=== PATIENT | female | born 1995 | race Caucasian/White ===

== ENCOUNTER 2023-11-18 07:48 | Emergency (ER) | payer MEDICAID ==
[~2023-11-18] VITALS: Ht 170.2 cm; Wt 123.7 kg
[2023-11-18] MEDS ORDERED: dexamethasone sod phosphate 10mg/ml inj PO STA (10:49)
[2023-11-18] MEDS ORDERED: AZIT500T PO (10:51)
[2023-11-18 11:41] VITALS: BP 111/62; PULSE 91; RESP 18; TEMP 98.4; O2SAT 95
== END 2023-11-18 11:43 | disposition home or self-care (01) ==
LOC: ER 07:49
DX: J20.9 Acute bronchitis, unspecified (principal)
CPT/HCPCS: 71045; 99283; J1100

== ENCOUNTER 2023-12-11 14:33 | Emergency (ER) | payer MEDICAID ==
[~2023-12-11] VITALS: Ht 170.2 cm; Wt 127.3 kg
[2023-12-11 14:36] VITALS: BP 146/92; PULSE 77; RESP 16; TEMP 97.7; O2SAT 97
[2023-12-11] MEDS ORDERED: CEFD300C3 PO (15:12)
[2023-12-11] MEDS: dexamethasone sod phosphate 10mg/ml inj PO STA (15:22)
== END 2023-12-11 15:44 | disposition home or self-care (01) ==
LOC: ER 14:34
DX: J32.9 Chronic sinusitis, unspecified (principal); J20.9 Acute bronchitis, unspecified
CPT/HCPCS: 71045; 99283; J1100

== ENCOUNTER 2025-03-30 20:46 | Emergency (ER) | payer MEDICAID ==
[~2025-03-30] VITALS: Ht 170.2 cm; Wt 129.6 kg
[2025-03-30 21:27] VITALS: BP 146/90; PULSE 97; O2SAT 97
--- NOTE | 2025-03-30 21:34 | Physician Documentation ---
History of Present Illness ~ Stated Complaint: BACK PAIN Time Seen by MD: 21:31 Primary Medical Doctor: [facility] Source: patient Mode of Arrival: POV Exam Limitations: no limitations HPI 29-year-old female with history of back pain and spasms was laying on the ground when her back started to tighten up. Patient states it similar to the previous times that this has occurred. Patient desires to stay away from opiates or muscle relaxers. Patient does state that the Toradol did help last time she had this event. Patient denies any significant injuries or events causing this pain. Medication Reconciliation Allergies: Coded Allergies: No Known Allergies (Unverified , 11/18/23) Past Medical History Past Medical History: *MUSCULOSKELETAL*, Chronic Back Pain Review of Systems All Other Systems at this time: Reviewed and Negative Musculoskeletal: Reports: see HPI Physical Exam Physical Exam General Appearance: alert, WD/WN, no apparent distress Progress Results/Orders Results/Orders Orders - PRIYANKA LEACH NP Lidocaine 5% Patch (Lidoderm 5% Patch) (03/30/25 21:40) Ketorolac Trometh 30mg/Ml Vial (Toradol (03/30/25 21:40) Vital Signs 03/30/25 21:27 Temp 99.0 Pulse 97 Resp 22 B/P (MAP) 146/90 Pulse Ox 97 Medical Decision Making Findings History of chronic back pain similar symptoms no acute injuries. Differential Dx:Considerations: Include: Strain Departure Time of Disposition: 21:37 Disposition: 01 HOME / SELF CARE / HOMELESS Impression: Primary Impression: Low back pain Additional Impressions: Chronic back pain Muscle spasm of back Condition: Stable Discharge Instructions: Chronic Back Pain Additional Instructions: Use heat to help with muscle spasms to loosen muscles there are stretching activities as well. Follow up with primary care for potential referral to chiropractic or physical therapy to help with recurrent spasms of back pain. Referrals: NO PRIMARY CARE PROVIDER (PCP) Prescriptions Lidocaine (Lidoderm) 5 % Adh..patch 1 PATCH TOP DAILY for 30 Days, #30 PATCH 0 Refills may wear up to 12 hours Prov: PRIYANKA LEACH NP 03/30/25 Ibuprofen (Ibu) 800 Mg Tablet 1 TAB PO Q8H for 7 Days, #21 TAB 0 Refills Prov: PRIYANKA LEACH NP 03/30/25 Education Educated: Patient Educated regarding: diagnosis, treatment, need for follow up Signature Scribe Signature: The note accurately reflects work and decisions made by me.Priyanka ALCOCER 03/30/25 21:33 Attestation: The note accurately reflects work and decisions made by me.Priyanka ALCOCER 03/30/25 21:33 PRIYANKA LEACH NP Mar 30, 2025 21:34
[2025-03-30] MEDS ORDERED: LIDO-52 TOP (21:39)
[2025-03-30] MEDS ORDERED: IBUP-864 PO (21:39)
[2025-03-30 21:56] VITALS: TEMP 99
[2025-03-30 22:02] VITALS: RESP 16
[2025-03-30] MEDS: LIDOcaine 5% patch TP SCH (22:02)
[2025-03-30] MEDS: ketorolac trometh 30MG/ML vial 30 MG/ML VIAL IM ONE (22:02)
== END 2025-03-30 22:06 | disposition home or self-care (01) ==
LOC: ER 20:46
DX: G89.29 Other chronic pain (principal); M54.50 Low back pain, unspecified; M62.830 Muscle spasm of back
CPT/HCPCS: 96372; 99283; J1885